=== PATIENT | male | born 1980 | race Caucasian/White ===

== ENCOUNTER 2019-03-20 13:12 | Day surgery (SDC) | payer BC ==
[2019-03-20] MEDS ORDERED: Hydrocortisone Sod Succ/PF 1,000 MG in Sodium Chloride 0.9% 50 ML IVPB SCH (13:45)
[2019-03-20] MEDS ORDERED: methylPREDNISolone Sod Succ 1,000 MG in Sodium Chloride 0.9% 100 ML IVPB SCH (13:45)
[2019-03-20 15:03] VITALS: BP 133/74; TEMP 96
== END 2019-03-20 15:47 | disposition home or self-care (01) ==
LOC: ONC/OP 13:12
PROVIDERS: ATTEND Psychiatry & Neurology Neurology
DX: G35 Multiple sclerosis (principal)
CPT/HCPCS: 96365; J1720; J2930; J3490

== ENCOUNTER 2019-03-21 12:56 | Day surgery (SDC) | payer BC ==
[~2019-03-21 12:56] MED LIST: methylPREDNISolone Sod Succ 1 GM in Sodium Chloride 0.9% 100 ML IVPB SCH; methylPREDNISolone Sod Succ 1 GM in Sodium Chloride 0.9% 250 ML 250 ML IVPB SCH
[2019-03-21 15:12] VITALS: BP 122/59; TEMP 98.5
== END 2019-03-21 15:13 | disposition home or self-care (01) ==
LOC: ONC/OP 12:56
PROVIDERS: ATTEND Psychiatry & Neurology Neurology
DX: G35 Multiple sclerosis (principal)
CPT/HCPCS: 96365; J2930; J7050

== ENCOUNTER 2019-11-01 13:25 | Outpatient (CLI) | payer BC ==
--- NOTE | 2019-11-01 17:46 | MRI ---
MRI OF THE BRAIN WITHOUT AND WITH CONTRAST: 11/01/19 HISTORY: Heavy feeling in his legs that began this summer. Multiple sclerosis. TECHNIQUE: Multiplanar and multisequence MR images were obtained of the brain without and with IV contrast. FINDINGS: There is scattered foci of high FLAIR signal in the subcortical and periventricular white matter. No restricted diffusion is seen. There is a 2.9 cm homogeneously enhancing mass extending upward from th e sella turcica. This appears to impress upon the optic chiasm. No abnormal enhancement is seen in an y of the region of the white matter FLAIR foci. There is no evidence of hydrocephalus, intracranial hemorrhage, or extra-axial fluid collection. The expected flow voids are present. The corpus callosum and craniocervical junction are unremarkable. The visualized paranasal sinuses and mastoid air cells are well aerated. IMPRESSION: 1. Multiple scattered foci of high FLAIR signal are consistent with the patient's diagnosis of m ultiple sclerosis. No enhancement of these white matter lesions is seen to suggest active disease. 2. There is an enhancing mass emanating from the sella turcica. 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 POS: [facility]
== END 2019-11-01 13:26 | disposition home or self-care (01) ==
LOC: SCSMRI 13:25
PROVIDERS: ATTEND Psychiatry & Neurology Neurology
DX: G35 Multiple sclerosis (principal); E23.6 Other disorders of pituitary gland
CPT/HCPCS: 70553